=== PATIENT | male | born 1960 | race Caucasian/White ===

== ENCOUNTER → 2016-09-24 | Outpatient (CLI) | payer BC ==
[~2016-09-24] MED LIST: ASPI-860 PO; ATOR80TA PO; CEPH500T PO; FURO20TA4 PO; HYDR-3702 PO; LISI5TAB14 PO; MTP50T PO; TICA90TA PO
== END ==
LOC: EMS 11:27
PROVIDERS: ATTEND Family Medicine
DX: M25.512 Pain in left shoulder (principal); R07.89 Other chest pain

== ENCOUNTER → 2016-10-11 | Outpatient (CLI) | payer BC | LOC: EMS 16:58 | PROVIDERS: ATTEND Emergency Medicine | DX: R55 Syncope and collapse (principal); S01.81XA Laceration without foreign body of other part of head, initial encounter; W19.XXXA Unspecified fall, initial encounter; Y92.512 Supermarket, store or market as the place of occurrence of the external cause; Z95.818 Presence of other cardiac implants and grafts ==